=== PATIENT | male | born 1940 | race Caucasian/White ===

== ENCOUNTER → 2019-01-08 09:49 | Outpatient (CLI) | payer MEDICARE, SELFPAY ==
--- NOTE | 2019-01-08 09:56 | XR_ITS ---
PROCEDURE: XR FOOT WT BEARING RT 3V CLINICAL INDICATION: pain Right foot pain COMPARISON: No exams were available for comparison FINDINGS: There are severe osteoarthritic changes of the 1st metatarsophalangeal joint with subarticular cystic changes. There is a lucency along the dorsal and distal aspect of the 1st metatarsal. This is somewhat ill-defined and could represent a lytic lesion here. One would expect a subarticular cyst of the somewhat more well-defined. Gout could cause this finding. Osteomyelitis is also a consideration. There is some soft tissue swelling in this area. Please correlate with clinical parameters. Other findings:None. 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 An atypical subarticular cyst is an additional consideration. Dictated by: Jeff Olivas MD 01/08/2019 17:45 Electronically signed by Jeff Olivas MD in [place] 01/08/2019 17:45
--- NOTE | 2019-01-08 09:56 | XR_ITS ---
PROCEDURE: XR FOOT WT BEARING LT 3V CLINICAL INDICATION: pain COMPARISON: No exams were available for comparison FINDINGS: No fracture or dislocation. No lytic or blastic change. There is normal mineralization. There are severe osteoarthritic changes of the 1st metatarsophalangeal joint with some periarticular calcification laterally. There is mild pes planus. 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
== END ==
LOC: RAD 09:53
PROVIDERS: PCP Family Medicine; Visit Provider Nurse Practitioner
DX: M79.672 Pain in left foot (principal); M79.671 Pain in right foot
CPT/HCPCS: 73630